=== PATIENT | female | born 1970 | race Caucasian/White ===

== ENCOUNTER → 2023-04-15 16:48 | Outpatient (REF) | payer OTHER, SELFPAY | LOC: HWWDC 16:48 | PROVIDERS: ATTENDING PHYSICIAN Nurse Practitioner; REFERRING PHYSICIAN Obstetrics & Gynecology | DX: Z12.31 Encounter for screening mammogram for malignant neoplasm of breast (principal) | CPT/HCPCS: 77063; 77067 ==

== ENCOUNTER → 2024-04-16 12:32 | Outpatient (REF) | payer OTHER, SELFPAY | LOC: HWWDC 12:32 | PROVIDERS: ATTENDING PHYSICIAN Nurse Practitioner Women's Health | DX: Z12.31 Encounter for screening mammogram for malignant neoplasm of breast (principal) | CPT/HCPCS: 77063; 77067 ==